=== PATIENT | female | born 1975 | race Caucasian/White ===

== ENCOUNTER → 2019-09-14 13:35 | Outpatient (BNVA) | payer MEDICARE, MEDICAID, SELFPAY | PROVIDERS: Family Provider Family Medicine; Visit Provider Nurse Practitioner Psychiatric/Mental Health | DX: F43.12 Post-traumatic stress disorder, chronic (principal); F41.0 Panic disorder [episodic paroxysmal anxiety]; F31.75 Bipolar disorder, in partial remission, most recent episode depressed; Z79.899 Other long term (current) drug therapy | CPT/HCPCS: 99213 ==

== ENCOUNTER → 2019-12-11 08:26 | Outpatient (BNVA) | payer MEDICARE, MEDICAID, SELFPAY | PROVIDERS: Family Provider Family Medicine; Visit Provider Nurse Practitioner Psychiatric/Mental Health | DX: F31.76 Bipolar disorder, in full remission, most recent episode depressed (principal); F43.12 Post-traumatic stress disorder, chronic; F41.0 Panic disorder [episodic paroxysmal anxiety]; F33.2 Major depressive disorder, recurrent severe without psychotic features; F41.1 Generalized anxiety disorder | CPT/HCPCS: 99212 ==

== ENCOUNTER → 2020-03-07 10:27 | Outpatient (BNVA) | payer MEDICARE, MEDICAID, SELFPAY | PROVIDERS: Family Provider Family Medicine; Visit Provider Nurse Practitioner Psychiatric/Mental Health | DX: F31.76 Bipolar disorder, in full remission, most recent episode depressed (principal); F41.0 Panic disorder [episodic paroxysmal anxiety]; F43.12 Post-traumatic stress disorder, chronic | CPT/HCPCS: 99212 ==

== ENCOUNTER → 2020-05-27 09:04 | Outpatient (BNVA) | payer MEDICARE, MEDICAID, SELFPAY | PROVIDERS: Family Provider Family Medicine; Visit Provider Nurse Practitioner Psychiatric/Mental Health | DX: F31.75 Bipolar disorder, in partial remission, most recent episode depressed (principal) | CPT/HCPCS: 80061; 83036 ==

== ENCOUNTER → 2020-05-30 09:32 | Outpatient (BNVA) | payer MEDICARE, MEDICAID, SELFPAY | PROVIDERS: Family Provider Family Medicine; Visit Provider Nurse Practitioner Psychiatric/Mental Health | DX: F41.0 Panic disorder [episodic paroxysmal anxiety] (principal); F43.12 Post-traumatic stress disorder, chronic; F31.76 Bipolar disorder, in full remission, most recent episode depressed | CPT/HCPCS: 99212 ==

== ENCOUNTER → 2020-06-24 13:49 | Outpatient (BNVA) | payer MEDICARE, MEDICAID, SELFPAY | PROVIDERS: Family Provider Family Medicine; Visit Provider Family Medicine | DX: I10 Essential (primary) hypertension (principal); E03.9 Hypothyroidism, unspecified; J44.9 Chronic obstructive pulmonary disease, unspecified | CPT/HCPCS: 80053; 81015; 82043; 84443; 85025 ==

== ENCOUNTER → 2020-08-15 10:37 | Outpatient (BNVA) | payer MEDICARE, MEDICAID, SELFPAY | PROVIDERS: Family Provider Family Medicine; Visit Provider Nurse Practitioner Psychiatric/Mental Health | DX: F41.0 Panic disorder [episodic paroxysmal anxiety] (principal); F43.12 Post-traumatic stress disorder, chronic; F31.76 Bipolar disorder, in full remission, most recent episode depressed; F12.20 Cannabis dependence, uncomplicated | CPT/HCPCS: 99212 ==

== ENCOUNTER → 2020-11-18 08:15 | Outpatient (BNVA) | payer MEDICARE, MEDICAID, SELFPAY | PROVIDERS: Family Provider Family Medicine; Visit Provider Nurse Practitioner Psychiatric/Mental Health | DX: F41.0 Panic disorder [episodic paroxysmal anxiety] (principal); F43.12 Post-traumatic stress disorder, chronic; F31.76 Bipolar disorder, in full remission, most recent episode depressed; F12.20 Cannabis dependence, uncomplicated | CPT/HCPCS: 99213 ==

== ENCOUNTER → 2020-11-26 13:47 | Outpatient (BNVA) | payer MEDICARE, MEDICAID, SELFPAY | PROVIDERS: Family Provider Family Medicine; PCP Family Medicine; Visit Provider Specialist | DX: G43.711 Chronic migraine without aura, intractable, with status migrainosus (principal); I65.29 Occlusion and stenosis of unspecified carotid artery; F17.210 Nicotine dependence, cigarettes, uncomplicated | CPT/HCPCS: 99215 ==

== ENCOUNTER 2020-12-19 13:33 | Outpatient (CLI) | payer MEDICARE, MEDICAID, SELFPAY ==
--- NOTE | 2020-12-19 14:00 | CT_ITS ---
WS: [id number] CTA scan of the carotid arteries. Additional two-dimensional coronal and sagittal reconstruction was performed. MIP images were also performed. 12/19/2020 Clinical Data: I65.29 - Occlusion and stenosis of unspecified carotid ar... Comparison: CTA of the carotid arteries, 01/03/2019. DLP: 902.[address] scans at [facility] use at least one of these dose optimization techniques: automat ed exposure control; mA and/or kV adjustment per patient size (includes targeted exams where dose is matched to clinical indication); or iterative reconstruction. Findings: Arterial: The origin of the right internal carotid artery shows a 72% stenosis. Basically this is the same as w as seen on the prior study. The right vertebral artery is diminutive. The left common carotid artery bifurcates normally into the left internal and external carotid arteries with no evidence of stenosi s. The left vertebral artery is larger than the right. The carotid arteries and the vertebral arteries enter the cerebral circulation. The cabaz[place] of [place] is normal with no evidence of any aneurysms. NECK: The lung apices are normal. The thyroid gland shows normal enhancement. No lymphadenopathy is noted. The hypopharynx and oropharynx are unremarkable. The larynx is symmetric. The skull base shows no abn ormalities. CT/CT angio neck [id number] Impression: 1. Right internal carotid stenosis of 72%, basically unchanged from before. 2. Normal left carotid bifurcation.
[2020-12-19] MEDS: iohexol 350 mg/mL 100 mL Btl IV (14:07)
== END 2020-12-19 13:34 | disposition home or self-care (01) ==
LOC: RADWPI 13:40
PROVIDERS: PCP Family Medicine; Visit Provider Specialist
DX: I65.29 Occlusion and stenosis of unspecified carotid artery (principal)
CPT/HCPCS: 70498; Q9967

== ENCOUNTER → 2021-01-27 10:03 | Outpatient (BNVA) | payer MEDICARE, MEDICAID, SELFPAY | PROVIDERS: PCP Family Medicine; Visit Provider Specialist | DX: G56.91 Unspecified mononeuropathy of right upper limb (principal); R20.0 Anesthesia of skin; F17.210 Nicotine dependence, cigarettes, uncomplicated | CPT/HCPCS: 95908 ==

== ENCOUNTER → 2021-02-10 07:28 | Outpatient (BNVA) | payer MEDICARE, MEDICAID, SELFPAY | PROVIDERS: PCP Family Medicine; Visit Provider Nurse Practitioner Psychiatric/Mental Health | DX: F41.0 Panic disorder [episodic paroxysmal anxiety] (principal); F43.12 Post-traumatic stress disorder, chronic; F31.76 Bipolar disorder, in full remission, most recent episode depressed; F12.20 Cannabis dependence, uncomplicated | CPT/HCPCS: 99213 ==

== ENCOUNTER → 2021-02-11 14:08 | Outpatient (BNVA) | payer MEDICARE, MEDICAID, SELFPAY | PROVIDERS: PCP Family Medicine; Visit Provider Nurse Practitioner Family | DX: Z20.822 Contact with and (suspected) exposure to COVID-19 (principal) | CPT/HCPCS: 87635 ==

== ENCOUNTER → 2021-04-14 07:40 | Outpatient (BNVA) | payer MEDICARE, MEDICAID, SELFPAY | PROVIDERS: PCP Family Medicine; Visit Provider Nurse Practitioner Psychiatric/Mental Health | DX: F41.0 Panic disorder [episodic paroxysmal anxiety] (principal); F43.12 Post-traumatic stress disorder, chronic; F31.76 Bipolar disorder, in full remission, most recent episode depressed; F12.20 Cannabis dependence, uncomplicated; Z79.899 Other long term (current) drug therapy | CPT/HCPCS: 99214 ==

== ENCOUNTER → 2021-05-02 11:58 | Outpatient (BNVA) | payer MEDICARE, MEDICAID, SELFPAY | PROVIDERS: PCP Family Medicine; Visit Provider Family Medicine | DX: I10 Essential (primary) hypertension (principal); E78.5 Hyperlipidemia, unspecified; E03.9 Hypothyroidism, unspecified; Z23 Encounter for immunization; Z79.899 Other long term (current) drug therapy | CPT/HCPCS: 80053; 80061; 82043; 83036; 84443; 85025 ==

== ENCOUNTER → 2021-06-19 09:36 | Outpatient (BNVA) | payer MEDICARE, MEDICAID, SELFPAY | PROVIDERS: PCP Family Medicine; Visit Provider Family Medicine | DX: R30.0 Dysuria (principal); R31.9 Hematuria, unspecified | CPT/HCPCS: 81000 ==

== ENCOUNTER → 2021-07-07 08:16 | Outpatient (BNVA) | payer MEDICARE, MEDICAID, SELFPAY | PROVIDERS: PCP Family Medicine; Visit Provider Nurse Practitioner Psychiatric/Mental Health | DX: F41.0 Panic disorder [episodic paroxysmal anxiety] (principal); F43.12 Post-traumatic stress disorder, chronic; F31.76 Bipolar disorder, in full remission, most recent episode depressed | CPT/HCPCS: 99213 ==

== ENCOUNTER → 2021-09-30 08:26 | Outpatient (BNVA) | payer MEDICARE, MEDICAID, SELFPAY | PROVIDERS: PCP Family Medicine; Visit Provider Nurse Practitioner Psychiatric/Mental Health | DX: F41.0 Panic disorder [episodic paroxysmal anxiety] (principal); F43.12 Post-traumatic stress disorder, chronic; F31.76 Bipolar disorder, in full remission, most recent episode depressed | CPT/HCPCS: 99214 ==

== ENCOUNTER → 2021-11-03 10:50 | Outpatient (BNVA) | payer MEDICARE, MEDICAID, SELFPAY | PROVIDERS: PCP Family Medicine; Visit Provider Family Medicine | DX: E03.9 Hypothyroidism, unspecified (principal) | CPT/HCPCS: 84443 ==

== ENCOUNTER → 2021-11-27 10:45 | Outpatient (BNVA) | payer MEDICARE, MEDICAID, SELFPAY | PROVIDERS: PCP Family Medicine; Visit Provider Nurse Practitioner Psychiatric/Mental Health | DX: F41.0 Panic disorder [episodic paroxysmal anxiety] (principal); F43.12 Post-traumatic stress disorder, chronic; F31.76 Bipolar disorder, in full remission, most recent episode depressed | CPT/HCPCS: 99214 ==

== ENCOUNTER → 2022-03-04 15:38 | Outpatient (BNVA) | payer MEDICARE, MEDICAID, SELFPAY | PROVIDERS: PCP Family Medicine; Visit Provider Specialist | DX: G43.711 Chronic migraine without aura, intractable, with status migrainosus (principal); I65.29 Occlusion and stenosis of unspecified carotid artery; F17.219 Nicotine dependence, cigarettes, with unspecified nicotine-induced disorders; R06.02 Shortness of breath | CPT/HCPCS: 99214 ==

== ENCOUNTER 2022-06-05 07:39 | Outpatient (CLI) | payer MEDICARE, MEDICAID, SELFPAY ==
--- NOTE | 2022-06-05 07:53 | MR_ITS ---
WS: [id number] MRA CAROTID WITHOUT GADOLINIUM ENHANCEMENT TECHNIQUE: Axial 2-D and 3-D TOF images obtained with axial images and axial, sagittal, and coronal 2 -D reformatted images. CLINICAL INFORMATION: G43.711 - Chronic migraine without aura, intractable, wit... COMPARISON: CTA December 19, 2020 FINDINGS: RIGHT: RIGHT common carotid artery is patent. Stenosis RIGHT proximal ICA measuring approximately 70% . This appears unchanged from the prior CTA. RIGHT ICA is patent to the skull base. LEFT: LEFT common carotid artery is patent. No significant LEFT ICA stenosis. LEFT ICA is patent to t he skull base. LEFT dominant vertebral artery. Diminutive RIGHT vertebral artery which ends in PICA. MR/MR angio neck wo con [id number] IMPRESSION: 1. Stenosis RIGHT proximal ICA measuring approximately 70%. This appears uncha nged from the prior CTA. 2. No significant LEFT ICA stenosis. 3. LEFT dominant vertebral artery. Diminutive RIGHT vertebral artery which end s in PICA.
--- NOTE | 2022-06-05 08:00 | MR_ITS ---
WS: [id number] MRA HEAD TECHNIQUE: Axial 3-D TOF images obtained with axial images and axial, sagittal, and coronal 2-D refor matted images. CLINICAL INFORMATION: G43.711 - Chronic migraine without aura, intractable, wit... COMPARISON: MRA FINDINGS: Dominant distal LEFT vertebral artery. Basilar artery is patent. Normal vascularity to the [place] territ ory bilaterally. Both ICAs are patent at the skull base. Normal vascularity to the ANDREA and MCA territories bilaterally. No evidence of flow-limiting stenosis or aneurysm. Hypoplastic RIGHT A1 segment. MR/MR angio head wo con [id number] IMPRESSION: 1. Normal intracranial MRA. 2. No evidence of flow-limiting stenosis or aneurysm. 3. Dominant distal LEFT vertebral artery. 4. Hypoplastic/absent RIGHT A1 segment.
== END 2022-06-05 07:40 | disposition home or self-care (01) ==
LOC: RAD 07:39
PROVIDERS: PCP Family Medicine; Visit Provider Specialist
DX: G43.711 Chronic migraine without aura, intractable, with status migrainosus (principal); I65.21 Occlusion and stenosis of right carotid artery
CPT/HCPCS: 70544; 70547

== ENCOUNTER → 2022-08-24 10:05 | Outpatient (BNVA) | payer MEDICARE, MEDICAID, OTHER, SELFPAY | PROVIDERS: PCP Family Medicine; Visit Provider Nurse Practitioner Psychiatric/Mental Health | DX: F31.76 Bipolar disorder, in full remission, most recent episode depressed (principal); F41.0 Panic disorder [episodic paroxysmal anxiety]; F43.12 Post-traumatic stress disorder, chronic; Z79.899 Other long term (current) drug therapy | CPT/HCPCS: 80053; 80061; 83036 ==

== ENCOUNTER → 2022-09-07 11:57 | Outpatient (BNVA) | payer MEDICARE, MEDICAID, SELFPAY | PROVIDERS: PCP Family Medicine; Visit Provider Family Medicine | DX: E03.9 Hypothyroidism, unspecified (principal); E87.6 Hypokalemia; F17.219 Nicotine dependence, cigarettes, with unspecified nicotine-induced disorders; I10 Essential (primary) hypertension | CPT/HCPCS: 80048; 83735; 84443 ==

== ENCOUNTER → 2022-09-24 09:34 | Outpatient (BNVA) | payer MEDICARE, MEDICAID, SELFPAY | PROVIDERS: PCP Family Medicine; Visit Provider Specialist | DX: G43.711 Chronic migraine without aura, intractable, with status migrainosus (principal); I65.29 Occlusion and stenosis of unspecified carotid artery; F17.219 Nicotine dependence, cigarettes, with unspecified nicotine-induced disorders; J43.1 Panlobular emphysema | CPT/HCPCS: 99213 ==

== ENCOUNTER 2023-02-01 08:24 | Emergency (ER) | payer MEDICARE, MEDICAID, SELFPAY ==
--- NOTE | 2023-02-01 08:25 | ED_ITS ---
HPI - Skin/Abscess/Foreign Bdy General: Chief complaint: Skin/Abscess/Foreign Body Stated complaint: Boil/abscess on lower stomach Time Seen by Provider: 02/01/23 08:25 Source: patient Mode of arrival: ambulatory Limitations: no limitations History of Present Illness: Patient is a 48-year-old female presents to ED today for complaints of an abscess to her lower abdomen. She states she has noticed it over the past 2 months or so and sometimes can get it to drain at home by popping it but feels like it always comes back. She states now it is larger than its ever been thus prompting her ED visit. She has not been running fevers. She does have a history of recurrent abscesses. No known history of MRSA. MD complaint: abscess/boil Onset (ago): month(s) Tetanus up to date: yes Severity: moderate Pain Consistency: constant Relieving factors: none Exacerbating factors: none Context: none Associated symptoms: Reports no associated symptoms; Deny fever(s), nausea or vomiting Treatments prior to arrival: attempted to drain pus at home Review of Systems Const: Denies: fever(s) GI: Denies: abdominal pain, nausea or vomiting Musc: Denies: neck pain, back pain, extremity pain or joint pain Skin/Breast: Reports: other (abscess) Neuro: Denies: headache(s) or dizziness PFSH ED PFSH: Medical History Bipolar 1 disorder, depressed, full remission Bipolar 1 disorder, depressed, partial remission Carotid artery stenosis, unilateral On right - about 75 % stenosis. Chronic post-traumatic stress disorder (PTSD) COPD (chronic obstructive pulmonary disease) Essential hypertension GERD (gastroesophageal reflux disease) Headache, migraine Hyperlipidemia Hypothyroid Panic disorder without agoraphobia Psychiatric care Surgical History H/O section History of appendectomy History of partial hysterectomy Social History Smoking and tobacco status: current every day smoker cigarettes Packs smoked per day: 1 Years cigarettes smoked: 34 Alcohol intake: never Substance/Drug Use: current Substance/Drug use frequency: daily Physical Exam Const: COMMON NORMALS: no acute distress, patient oriented x3, no limitations, alert and well nourished Resp: COMMON NORMALS: normal respiratory effort and clear to auscultation bila terally AUSCULTATION: clear to auscultation bilaterally Cardio: COMMON NORMALS: regular rate and regular rhythm RATE: regular rate RHYTHM: regular rhythm GI: COMMON NORMALS: Soft to palpation AUSCULTATION: Yes normoactive bowel sounds PALPATION: Yes Soft to palpation and No Tenderness to palpation present (GI) OTHER: see diagram below : GENITAL IMAGES (FEMALE): 1. abscess to L superior mons pubis region with obvious fluctuance and some mild surrounding erythema/edema Neuro: COMMON NORMALS: patient oriented x3, moves all extremities, no focal motor deficits and no sensory deficits noted SENSORIUM/ORIENTATION: Yes alert Skin: NARRATIVE SKIN EXAM: abscess-see above Procedures Abscess I/D Site: abdomen Side (if applicable): left Local Anesthetic: lidocaine 2% Amount of anesthesia used (mL): 4.0 Technique: incised with #11 blade Amount of fluid expressed (mL): 4.0 Irrigation: Yes Packing used?: plain Course Vital Signs: Vital signs: Vital Signs Temperature 97.8 F 02/01/23 08:35 Pulse Rate 88 02/01/23 08:38 Blood Pressure 199/134 02/01/23 08:35 Pulse Oximetry 99 02/01/23 08:38 MDM - Skin/Abscess/Foreign Bdy Medicial Decision Making Abscess was incised and drained and packed. Cultures obtained. Patient will be placed on Bactrim. Recommend follow-up with her primary care in 2 to 3 days for reevaluation. Return ED precautions given. Noted to be very hypertensive. States she does take blood pressure medications and blood pressure normally is not that high at home. She is asymptomatic. Recommend blood pressure log and follow-up with primary care if it continues to run high. Discharge Plan Discharge Patient Disposition: Home Clinical Impression: Abscess of abdominal wall Condition: Stable Prescriptions: New Bactrim DS 800-160 mg tablet 1 tab PO BID 7 Days Qty: 14 0RF No Action aspirin [Adult Low Dose Aspirin] 81 mg tablet,delayed release (DR/EC) 81 mg PO DAILY topiramate 50 mg tablet See Rx Instructions .ROUTE .COMPLEX Qty: 180 3RF Dose Instruction: TAKE 1 TABLET BY MOUTH TWICE A DAY Rx Instructions: TAKE 1 TABLET BY MOUTH TWICE A DAY quetiapine 300 mg tablet 300 mg PO .q hs Qty: 30 2RF Rx Instructions: Take one tablet daily at bedtime buspirone 10 mg tablet 10 mg PO BID Qty: 60 2RF Rx Instructions: Take one tablet morning and evening lamotrigine [Lamictal] 200 mg tablet 200 mg PO DAILY Qty: 30 2RF Rx Instructions: take one tablet by mouth once daily atorvastatin 40 mg tablet See Rx Instructions .ROUTE .COMPLEX Qty: 90 1RF Dose Instruction: TAKE 1 TABLET BY MOUTH EVERYDAY AT BEDTIME Rx Instructions: TAKE 1 TABLET BY MOUTH EVERYDAY AT BEDTIME albuterol sulfate 90 mcg/actuation HFA aerosol inhaler See Rx Instructions .ROUTE .COMPLEX Qty: 8.5 1RF Dose Instruction: INHALE 1 PUFF BY MOUTH 4 TIMES A DAY Rx Instructions: INHALE 1 PUFF BY MOUTH 4 TIMES A DAY budesonide-formoterol [Symbicort] 160-4.5 mcg/actuation HFA aerosol inhaler See Rx Instructions .ROUTE .COMPLEX Qty: 10.2 5RF Dose Instruction: INHALE 2 PUFFS BY MOUTH TWICE A DAY Rx Instructions: INHALE 2 PUFFS BY MOUTH TWICE A DAY levothyroxine 25 mcg capsule 25 mcg PO QAM 90 Days Qty: 90 1RF varenicline [Chantix Starting Month Box] 0.5 mg (11)- 1 mg (42) tablets,dose pack See Rx Instructions PO PER PKG DIR Qty: 53 0RF Rx Instructions: PO PER PKG DIR omeprazole 20 mg capsule,delayed release(DR/EC) See Rx Instructions .ROUTE .COMPLEX Qty: 90 0RF Dose Instruction: TAKE 1 CAPSULE BY MOUTH EVERY DAY Rx Instructions: TAKE 1 CAPSULE BY MOUTH EVERY DAY lisinopril 5 mg tablet See Rx Instructions .ROUTE .COMPLEX Qty: 90 1RF Dose Instruction: TAKE 1 TABLET BY MOUTH EVERY DAY Rx Instructions: TAKE 1 TABLET BY MOUTH EVERY DAY Discharge Orders: Discharge ED (Routine); Ordered 02/01/23 Ordered By: Naeyli Plata Referrals: Yesenia Dudley DO [Primary Care Provider] - Patient Instructions: Abscess (ED), Abscess Incision and Drainage (DC) Activity Restrictions/Additional Instructions: Please monitor your abscess for worsening symptoms such as worsening redness, swelling, increased drainage, red streaking, or fevers. If you have been on antibiotics for over 48 hours and continue to worsen you need to immediately return to the emergency department for re-evaluation. If your abscess was incised and drained and packing was placed, you need to follow up with your primary care provider in 2-3 days for re-packing. Coding Level of Care Code ED Patient Relations Specialist for Marcela Russell
[2023-02-01 08:35] VITALS: BP 199/134; TEMP 36.6; BMI 27.3
[2023-02-01 08:38] VITALS: PULSE 88; O2SAT 99
[2023-02-01] MEDS: lidocaine 2% INJ 20 mL INJECTION (09:15)
[2023-02-01 09:29] VITALS: BP 153/84; PULSE 97; RESP 16
== END 2023-02-01 09:29 | disposition home or self-care (01) ==
PROVIDERS: Emergency Provider Physician Assistant; PCP Family Medicine
DX: L02.211 Cutaneous abscess of abdominal wall (principal); Z79.899 Other long term (current) drug therapy
CPT/HCPCS: 10061; 87070; 87075; 87205; 99283

== ENCOUNTER → 2023-03-19 07:50 | Outpatient (BNVA) | payer MEDICARE, SELFPAY | PROVIDERS: PCP Family Medicine; Visit Provider Family Medicine | DX: I10 Essential (primary) hypertension (principal); E03.9 Hypothyroidism, unspecified | CPT/HCPCS: 80053; 84443; 85025 ==

== ENCOUNTER 2023-06-27 14:44 | Emergency (ER) | payer MEDICARE, MEDICAID, SELFPAY ==
[2023-06-27 14:51] VITALS: BP 144/82; PULSE 77; TEMP 36.8; O2SAT 98; BMI 32.2
--- NOTE | 2023-06-27 17:02 | CTR_ITS ---
PROCEDURE INFORMATION: Exam: CT Abdomen And Pelvis With Contrast Exam date and time: 06/27/2023 5:45 PM Age: 48 years old Clinical indication: Constipation; Prior surgery; Surgery date: 6+ months; Surgery type: Partial hyster, appy, c section TECHNIQUE: Imaging protocol: Computed tomography of the abdomen and pelvis with contrast. Radiation optimization: All CT scans at this facility use at least one of these dose optimization techniques: automated exposure control; mA and/or kV adjustment per patient size (includes targeted exams where dose is matched to clinical indication); or iterative reconstruction. Contrast material: OMNI 350; Contrast volume: 100 ml; Contrast route: INTRAVENOUS (IV); REPORTING DATA: Count of CT and Cardiac NM exams in prior 12 months: This patient has received 0 known CTs and 0 known cardiac nuclear medicine studies in the 12 months prior to the current study. COMPARISON: CT lumbar spine w con [id number] 05/21/2017 9:37 AM RADIATION DOSE METRICS: Total DLP (mGy-cm): 753.43 FINDINGS: Liver: Normal. No mass. Gallbladder and bile ducts: Normal. No calcified stones. No ductal dilation. Pancreas: Normal. No ductal dilation. Spleen: Normal. No splenomegaly. Adrenal glands: Normal. No mass. Kidneys and ureters: Normal. No hydronephrosis. Stomach and bowel: Moderate stool burden throughout the colon. No bowel obstruction. Appendix: The appendix is not visualized but there are no secondary signs of acute appendicitis. Intraperitoneal space: Unremarkable. No free air. No significant fluid collection. Vasculature: Unremarkable. No abdominal aortic aneurysm. Lymph nodes: Unremarkable. No enlarged lymph nodes. Urinary bladder: Unremarkable as visualized. Reproductive: Unremarkable as visualized. Bones/joints: Severe degenerative disc disease at L2-L3 and [id number] degenerative disc disease at L3-L4. Soft tissues: Unremarkable. CT/CT abdomen pelvis w con* [id number] IMPRESSION: Moderate stool burden throughout the colon. No bowel obstruction.
--- NOTE | 2023-06-27 17:10 | ED_ITS ---
HPI - Abdominal Pain General: Chief Complaint: Abdominal Pain Stated Complaint: constipated,weakness Time Seen by Provider: 06/27/23 16:33 Source: patient Mode of arrival: ambulatory Limitations: no limitations History of Present Illness: This 48-year-old female presents to the ER with constipation. She notes that since 06/14/2023 (15 days ago), she has not had a bowel movement. However, she continues to eat with no vomiting. Her abdomen is bloated and she has mild discomfort in the left upper quadrant. Patient denies fever, chest pain, shortness of breath, dysuria or any other pertinent symptoms. She has tried all sorts of laxatives and enemas without success. She has never had a fecal i mpaction before and denies any change in medications or routine that could have contributed to this. Associated Symptoms: Reports constipation; Denies chills and dysuria Review of Systems Const: Denies: chills, body aches or change in appetite Eyes: Denies: change in vision or eye discharge ENMT: Denies: throat pain, dental pain or nasal discharge Card: Denies: chest pain or lightheadedness GI: Reports: abdominal pain (discomfort) and constipation : Denies: dysuria Musc: Denies: neck pain or back pain Neuro: Denies: headache(s) or weakness in extremities Psych: Denies: depression Crow/Lymph: Denies: easy bruising All/Imm: Denies: urticaria, tongue swelling or facial swelling PFS ED PFSH: Medical History Bipolar 1 disorder, depressed, full remission Bipolar 1 disorder, depressed, partial remission Carotid artery stenosis, unilateral On right - about 75 % stenosis. Chronic post-traumatic stress disorder (PTSD) COPD (chronic obstructive pulmonary disease) Essential hypertension GERD (gastroesophageal reflux disease) Headache, migraine Hyperlipidemia Hypothyroid Panic disorder without agoraphobia Psychiatric care Surgical History H/O section History of appendectomy History of partial hysterectomy Social History Smoking and tobacco/nicotine status: current every day tobacco/nicotine user cigarettes Packs smoked per day: 1 Years cigarettes smoked: 34 Alcohol intake: never Substance/Drug Use: current Substance/Drug use frequency: daily Physical Exam Const: COMMON NORMALS: no acute distress, patient oriented x3, no limitations and alert HENMT: COMMON NORMALS: normocephalic HEAD & SCALP: normocephalic Eye: COMMON NORMALS: EOMs intact bilaterally Neck/C-Spine: COMMON NORMALS: full ROM and supple Chest: COMMONS NORMALS: normal inspection of the chest Resp: COMMON NORMALS: normal respiratory effort, No retractions, No use of accessory muscles and clear to auscultation bilaterally AUSCULTATION: clear to auscultation bilaterally Cardio: COMMON NORMALS: regular rate, regular rhythm and No murmurs present (Cardio) RATE: regular rate RHYTHM: regular rhythm GI: OTHER: Abdomen is large, soft, mildly tender in the left upper quadrant, no rigidity, bowel sounds are sluggish. Rectal exam reveals an empty rectum. : COMMON NORMALS: No no CVA tenderness BLADDER/KIDNEY EXAM: No no CVA tenderness Back/Pelvis: COMMON NORMALS: no thoracic nor lumbar tenderness; negative for no CVA tenderness Extremity: GENERAL: Yes normal exam except as noted Neuro: COMMON NORMALS: patient oriented x3 and no focal motor deficits SENSORIUM/ORIENTATION: Yes alert Psych: COMMON NORMALS: mental status grossly normal and cooperative Course Vital Signs: Vital signs: Vital Signs Temperature 98.2 F 06/27/23 14:51 Pulse Rate 68 06/27/23 19:15 Respiratory Rate 20 H 06/27/23 19:15 Blood Pressure 127/87 06/27/23 19:15 Pulse Oximetry 97 06/27/23 19:15 Oxygen Delivery Me thod Room Air 06/27/23 14:51 MDM - Abdominal Pain Medical Decision Making Medical decision making: History as above. Rectal exam confirms that patient has no fecal impaction. CT abdomen/pelvis was obtained to rule out acute bowel obstruction. There is no indication of bowel obstruction but it does reveal a large burden of stool in the large bowel. Since patient has tried different laxatives at home, we will give her GoLytely. Instructions on how to use it or provided. She was advised to increase fiber in her diet and to maintain adequate fluid intake. Reasons to return were discussed. Patient verbalized understanding and agrees with the plan. Lab Data 06/27/23 17:33 06/27/23 17:33 Labs/Radiology: Radiology Impressions Abdomen/Pelvis CT 06/27/23 17:02 IMPRESSION: Moderate stool burden throughout the colon. No bowel obstruction. Laboratory Results WBC 10.25 10^3/uL (3.29-11.43) 06/27/23 17: RBC 4.16 10^6/uL (3.85-5.65) 06/27/23 17: Hgb 13.20 g/dL (11.27-16.99) 06/27/23 17: Hct 39.3 % (36-47) 06/27/23 17: MCV 94.5 fl (85-98) 06/27/23 17: MCH 31.7 pg (27-33) 06/27/23 17: MCHC 33.6 g/dL (30-55) 06/27/23 17: RDW 12.3 % (12.1-15.1) 06/27/23 17: Plt Count 240 10^3/cmm (157-399) 06/27/23 17: MPV 10.2 fL (7.4-10.4) 06/27/23 17: Neut % (Auto) 53.3 % 06/27/23 17: Lymph % (Auto) 36.5 % 06/27/23 17: [place] % (Auto) 7.1 % 06/27/23 17: Eos % (Auto) 2.0 % 06/27/23 17: Baso % (Auto) 0.8 % 06/27/23: Neut # (Auto) 5.46 10^3/uL (1.8-7.7) 06/27/23 17: Lymph # (Auto) 3.7 10^3/uL (0.8-4.8) 06/27/23 17: [place] # (Auto) 0.7 10^3/uL (0.2-0.9) 06/27/23 17: Eos # (Auto) 0.2 10^3/uL (0.0-0.8) 06/27/23 17: Baso # (Auto) 0.1 10^3/uL (0.0-0.1) 06/27/23 17: Nucleated RBC % (auto) 0 % 06/27/23 17:33 Nucleated RBCs # 0.0 /100WBC 06/27/23 17:33 Sodium 140 mmol/L (136-145) 06/27/23 17:33 Potassium 3.5 mmol/L (3.5-5.1) 06/27/23 17:33 Chloride 105 mmol/L (98-107) 06/27/23 17:33 Carbon Dioxide 23 mmol/L (22-29) 06/27/23 17:33 Anion Gap 15.5 (5-19) 06/27/23 17:33 BUN 11 mg/dL (6-20) 06/27/23 17:33 Creatinine 0.7 mg/dL (0.5-0.9) 06/27/23 17:33 GFR Calculation 89.3 mL/min (90-130) L 06/27/23 17:33 Glucose 101 mg/dL (65-115) 06/27/23 17:33 Calculated Osmolality 290 mOsm/kg (285-295) 06/27/23 17:33 Calcium 9.0 mg/dL (8.5-10.5) 06/27/23 17:33 Total Bilirubin 0.2 mg/dL (0.15-1.2) 06/27/23 17:33 AST 15 U/L (0-32) 06/27/23 17:33 ALT 12 U/L (0-33) 06/27/23 17:33 Alkaline Phosphatase 75 U/L (35-105) 06/27/23 17:33 Total Protein 7.1 g/dL (6.6-8.7) 06/27/23 17:33 Albumin 4.2 g/dL (3.5-5.2) 06/27/23 17:33 Globulin 2.9 g/dL (1.3-4.6) 06/27/23 17:33 All radiology interpretation(s) finalized by discharge Discharge Plan Discharge Patient Disposition: Home Clinical Impression: Constipation Condition: Stable Prescriptions: New Golytely 236-22.74-6.74 -5.86 gram recon soln 240 ml PO Q10M Qty: 4000 0RF Rx Instructions: Until have the first bowel movement No Action aspirin [Adult Low Dose Aspirin] 81 mg tablet,delayed release (DR/EC) 81 mg PO DAILY buspirone 10 mg tablet 10 mg PO BID Qty: 60 1RF lamotrigine [Lamictal] 200 mg tablet 200 mg PO DAILY Qty: 30 1RF levothyroxine 50 mcg tablet 50 mcg PO QAM atorvastatin 40 mg tablet 40 mg PO BEDTIME quetiapine 300 mg tablet 300 mg PO BEDTIME omeprazole 20 mg capsule,delayed release(DR/EC) 20 mg PO DAILY lisinopril 5 mg tablet 5 mg PO DAILY albuterol sulfate 90 mcg/actuation HFA aerosol inhaler 1 inh inhalation QID PRN (Reason: Shortness Of Breath) topiramate 50 mg tablet 50 mg PO BID Symbicort 160-4.5 mcg/actuation HFA aerosol inhaler 2 inh inhalation BID Discharge Orders: Discharge ED (Routine); Ordered 06/27/23 Ordered By: Felicita Guevara Referrals: Yesenia Dudley DO [Primary Care Provider] - Discharge Diet: As Directed Discharge Activity: Resume usual activity Patient Instructions: Opioid Safety, Pain Management Activity Restrictions/Additional Instructions: Take GoLytely as prescribed. Use it until you have the first bowel movement. Th en stop. Afterwards, start taking MiraLAX daily to maintain soft and daily bowel movements. Increase fiber in your diet including fruits and vegetables. Maintain adequate fluid intake. Follow-up with your primary care physician within a week for reevaluation. Return with new or worsening symptoms. Coding Level of Care Code ED Building Specialist for Marcela Russell
[2023-06-27] MEDS: sodium chloride 0.9% 1,000 ML 999 ML IV (17:25)
[2023-06-27 17:45] LABS: Basophils # 0.1 10^3/uL (0.0-0.1); Basophils % 0.8 %; Eosinophils # 0.2 10^3/uL (0.0-0.8); Hematocrit 39.3 % (36-47); Lymphocytes # 3.7 10^3/uL (0.8-4.8); Lymphocytes % 36.5 %; Mean Corpuscular HGB Conc 33.6 g/dL (30-55); Mean Corpuscular Hemoglobin 31.7 pg (27-33); Mean Corpuscular Volume 94.5 fl (85-98); Mean Platelet Volume 10.2 fL (7.4-10.4); Monocytes # 0.7 10^3/uL (0.2-0.9); Monocytes % 7.1 %; Neutrophils # 5.46 10^3/uL (1.8-7.7); Neutrophils % 53.3 %; Nucleated Red Blood Cells % 0 %; Platelet Count 240 10^3/cmm (157-399); Red Blood Count 4.16 10^6/uL (3.85-5.65); Red Cell Distribution Width 12.3 % (12.1-15.1); White Blood Count 10.25 10^3/uL (3.29-11.43)
[2023-06-27 18:04] LABS: Alanine Aminotransferase 12 U/L (0-33); Albumin Level 4.2 g/dL (3.5-5.2); Alkaline Phosphatase 75 U/L (35-105); Anion Gap 15.5 (5-19); Aspartate Amino Transferase 15 U/L (0-32); Blood Urea Nitrogen 11 mg/dL (6-20); Carbon Dioxide 23 mmol/L (22-29); Chloride 105 mmol/L (98-107); Globulin 2.9 g/dL (1.3-4.6); Glomerular Filtration Rate 89.3 mL/min (90-130); Glucose 101 mg/dL (65-115); Osmolality Calculated 290 mOsm/kg (285-295); Potassium 3.5 mmol/L (3.5-5.1); Sodium 140 mmol/L (136-145); Total Bilirubin 0.2 mg/dL (0.15-1.2); Total Protein 7.1 g/dL (6.6-8.7)
[2023-06-27 19:15] VITALS: BP 127/87; PULSE 68; RESP 20; O2SAT 97
== END 2023-06-27 19:16 | disposition home or self-care (01) ==
PROVIDERS: Emergency Provider Family Medicine; PCP Family Medicine
DX: K59.00 Constipation, unspecified (principal); Z79.82 Long term (current) use of aspirin; J44.9 Chronic obstructive pulmonary disease, unspecified; I10 Essential (primary) hypertension; E78.5 Hyperlipidemia, unspecified; F17.210 Nicotine dependence, cigarettes, uncomplicated
CPT/HCPCS: 36415; 74177; 80053; 85025; 96360; 99285; J7030; Q9967

== ENCOUNTER → 2023-12-15 08:20 | Outpatient (BNVA) | payer MEDICARE, OTHER, SELFPAY | PROVIDERS: PCP Family Medicine; Visit Provider Nurse Practitioner Psychiatric/Mental Health | DX: Z79.899 Other long term (current) drug therapy (principal) | CPT/HCPCS: 80053; 80061; 83036 ==

== ENCOUNTER → 2024-01-14 10:26 | Outpatient (BNVA) | payer MEDICARE, SELFPAY | PROVIDERS: PCP Family Medicine; Visit Provider Family Medicine | DX: E03.9 Hypothyroidism, unspecified (principal); E78.2 Mixed hyperlipidemia; I10 Essential (primary) hypertension; K21.9 Gastro-esophageal reflux disease without esophagitis; Z12.31 Encounter for screening mammogram for malignant neoplasm of breast; Z12.11 Encounter for screening for malignant neoplasm of colon | CPT/HCPCS: 84443 ==

== ENCOUNTER 2024-02-02 08:08 | Outpatient (CLI) | payer MEDICARE, MEDICAID, SELFPAY ==
--- NOTE | 2024-02-02 08:30 | MM_ITS ---
WS: [id number] BILATERAL 3D TOMOSYNTHESIS DIGITAL SCREENING MAMMOGRAPHY WITH CAD CLINICAL INFORMATION: screening HISTORY: Screening mammogram. No current complaints. COMPARISON: 2019 TECHNIQUE: Bilateral CC and MLO views. FINDINGS: The breasts are composed of heterogeneous fibroglandular density tissue, which can limit the detectio n of small underlying mass lesions. No suspicious mass, asymmetry, calcifications, or architectural d istortion. No evidence of malignancy. Lucent centered calcification RIGHT breast. Tiny calcified nodu le RIGHT breast likely involuting fibroadenoma MM/[place] [id number] IMPRESSION: BI-RADS: 2-Benign FOLLOW UP: 1 Year Follow-up Recommend return to annual screening mammography.
== END 2024-02-02 08:09 | disposition home or self-care (01) ==
LOC: RAD 08:08
PROVIDERS: PCP Family Medicine; Visit Provider Family Medicine
DX: Z12.31 Encounter for screening mammogram for malignant neoplasm of breast (principal); R92.333 Mammographic heterogeneous density, bilateral breasts; R92.323 Mammographic fibroglandular density, bilateral breasts; R92.1 Mammographic calcification found on diagnostic imaging of breast
CPT/HCPCS: 77063; 77067

== ENCOUNTER → 2024-03-28 09:09 | Outpatient (BNVA) | payer MEDICARE, SELFPAY | PROVIDERS: PCP Family Medicine; Visit Provider Specialist | DX: E03.9 Hypothyroidism, unspecified (principal); I65.29 Occlusion and stenosis of unspecified carotid artery; R29.90 Unspecified symptoms and signs involving the nervous system; G43.711 Chronic migraine without aura, intractable, with status migrainosus; F17.219 Nicotine dependence, cigarettes, with unspecified nicotine-induced disorders; J43.1 Panlobular emphysema; I95.1 Orthostatic hypotension; Z71.6 Tobacco abuse counseling | CPT/HCPCS: 36415; 84439; 84443; 99214; 99215 ==

== ENCOUNTER 2024-04-10 13:44 | Outpatient (CLI) | payer MEDICARE, MEDICAID, SELFPAY ==
--- NOTE | 2024-04-10 14:00 | CT_ITS ---
WS: [id number] CTA NECK TECHNIQUE: Contrast enhanced CTA of the neck with coronal and sagittal reformatted images and maximum intensity projection (MIP) images. NASCET criteria utilized. CLINICAL INFORMATION: I65.29 - Occlusion and stenosis of unspecified carotid ar... COMPARISON: CTA 2020 and MRA 06/05/2022 DLP: 309.[address] scans at [facility] use at least one of these dose optimization techniques: automated e xposure control; mA and/or kV adjustment per patient size (includes targeted exams where dose is matc hed to clinical indication); or iterative reconstruction. FINDINGS: RIGHT: RIGHT common carotid artery is patent. Stenosis RIGHT proximal ICA measuring approximately 70% unchanged from prior studies. RIGHT ICA remains patent to the skull base. LEFT: LEFT common carotid artery is patent. No significant LEFT ICA stenosis. LEFT ICA is patent to t he skull base. Absent RIGHT A1 segment. Normal vascularity to the ANDREA and MCA territories bilaterally . 5 mm noncalcified nodule RIGHT upper lobe. This appears stable since 2019. Tiny hypoplastic RIGHT rekha tebral artery. Dominant LEFT vertebral artery. Heterogeneous thyroid CT/CT angio neck [id number] IMPRESSION: 1. Stable approximately 70% stenosis RIGHT proximal ICA. 2. No significant LEFT ICA stenosis. 3. LEFT dominant vertebral artery. Tiny hypoplastic RIGHT vertebral artery.
[2024-04-10] MEDS: iohexol 350 mg/mL 500 mL Btl (per mL) IV (14:27)
== END 2024-04-10 13:45 | disposition home or self-care (01) ==
LOC: RAD 13:46
PROVIDERS: PCP Family Medicine; Visit Provider Specialist
DX: I65.21 Occlusion and stenosis of right carotid artery (principal)
CPT/HCPCS: 70498

== ENCOUNTER 2024-08-08 13:42 | Emergency (ER) | payer MEDICARE, MEDICAID, SELFPAY ==
[2024-08-08 14:02] VITALS: BP 182/91; PULSE 84; RESP 17; TEMP 36.9; O2SAT 99
--- NOTE | 2024-08-08 15:21 | ED_ITS ---
HPI - COVID 2 General: Chief Complaint: COVID symptoms Stated Complaint: covid symptoms Time Seen by Provider: 08/08/24 15:15 Source: patient Mode of arrival: ambulatory Limitations: no limitations Triage information: Has fever, cough or shortness of breath . History of Present Illness: Patient is a 49-year-old female who presents to ED today stating I think I have COVID . States she has symptoms of COVID and tested positive for COVID via home antigen testing approximately 3 to 4 days ago. Patient concerned because I am not getting better . She has reportedly had symptoms for over a week. Symptoms consisting of nasal congestion, cough (although this is improving), lack of appetite, generalized weakness, bilateral ear pain, loss of taste and smell, and body aches. She is not experiencing fevers. Patient is an everyday smoker?cigarettes and vaping. She is not having any vomiting or diarrhea. She is requesting IV fluids as she feels like this will make her feel better. MD complaint: known COVID positive and has COVID symptoms Prior covid testing: other (positive home antigen testing) COVID 19 common symptoms: positive chills, non-productive cough, fatigue, body aches and nasal congestion; negative fever(s), dyspnea, headache(s), throat pain, vomiting or diarrhea COVID 19 other sytmptoms: negative chest pain or dizziness Onset (ago): day(s) Severity: mild Treatment prior to arrival: none COVID Results: 2 SARS-CoV-2 RNA (RT-PCR) Not detected (NOT DETECTED) 02/11/21 1 4:08 Related Data Home Medications Medication Instructions Recorded Confirmed aspirin 81 mg tablet,delayed 81 mg PO DAILY 09/08/19 08/08/24 release (Adult Low Dose Aspirin) atorvastatin 40 mg tablet 40 mg PO QPM 08/08/24 08/08/24 levothyroxine 25 mcg tablet 25 mcg PO QAM 08/08/24 08/08/24 lisinopril 5 mg tablet 5 mg PO DAILY 08/08/24 08/08/24 Previous Rx's Medication Instructions Recorded topiramate 50 mg tablet 50 mg PO BID #180 tabs 03/28/24 buspirone 10 mg tablet 10 mg PO BID #60 tabs 07/24/24 lamotrigine 200 mg tablet 200 mg PO .q hs #30 tabs 07/24/24 (Lamictal) quetiapine 300 mg tablet 300 mg PO BEDTIME #30 tabs 07/24/24 dexamethasone 6 mg tablet 6 mg PO DAILY #6 tabs 08/08/24 Allergies Allergy/AdvReac Type Severity Reaction Status Date / Time sulfamethoxazole Allergy Intermediate ALGY-Chills Verified 08/08/24 14:07 [From Bactrim] trimethoprim [From Bactrim] Allergy Intermediate ALGY-Chills Verified 08/08/24 14:07 codeine Allergy Unknown Verified 08/08/24 14:07 Review of Systems 2 Const: Reports: chills, body aches, change in appetite and fatigue; Denies: fever(s) ENMT: Reports: ear or mastoid pain, change in hearing, nasal discharge, nasal congestion and other (loss of taste/smell); Denies: throat pain, odynophagia, ear discharge, tinnitus or disequilibrium Card: Denies: chest pain Resp: Reports: non-productive cough; Denies: dyspnea, wheezing or hemoptysis GI: Denies: abdominal pain, vomiting or diarrhea : Denies: flank pain or dysuria Musc: Denies: neck pain, back pain, extremity pain, extremity swelling, joint pain or joint swelling Skin/Breast: Denies: rash Neuro: Denies: headache(s), numbness in extremities, weakness in extremities, sensory changes or dizziness PFSH ED 2 PFSH: Medical History GERD (gastroesophageal reflux disease) Psychiatric care Headache, migraine Carotid artery stenosis, unilateral On right - about 75 % stenosis. Hyperlipidemia Essential hypertension Hypothyroid COPD (chronic obstructive pulmonary disease) Bipolar 1 disorder, depressed, full remission Bipolar 1 disorder, depressed, partial remission Panic disorder without agoraphobia Chronic post-traumatic stress disorder (PTSD) Surgical History History of partial hysterectomy H/O section History of appendectomy Social History Smoking and tobacco/nicotine status: current every day tobacco/nicotine user cigarettes Packs smoked per day: 1 Years cigarettes smoked: 34 Alcohol intake: never Substance/Drug Use: current Substance/Drug use frequency: daily Physical Exam 2 Const: COMMON NORMALS: no acute distress, average body habitus, patient oriented x3, no limitations, healthy appearing, alert and well nourished G ENERAL APPEARANCE: cooperative HENMT: COMMON NORMALS: normocephalic, atraumatic, hearing grossly normal bilaterally, external ears normal, EAC's normal, Normal external nose present, Normal nasal mucous membranes and turbinates present, moist oral mucous membranes and oropharynx normal HEAD & SCALP: normal to inspection, normocephalic and atraumatic FACE & SINUS: normal facial exam and sinuses nontender NOSE: Normal external nose present, Normal nasal mucous membranes and turbinates present and Nasal discharge present EXTERNAL EAR: Yes external ears normal EXTERNAL AUDITORY CANAL: EAC's normal TYMPANIC MEMBRANE: TM abnormal TM laterality: bilateral dull, wth effusion and with fluid behind the TM THROAT: posterior oropharynx normal, tonsils normal and uvula midline Eye: COMMON NORMALS: Equal, round and reactive pupils present, EOMs intact bilaterally and conjunctivae normal CONJUNCTIVA: Yes conjunctivae normal P UPIL: Yes Equal, round and reactive pupils present Neck/C-Spine: COMMON NORMALS: no lymphadenopathy Resp: COMMON NORMALS: normal respiratory effort and clear to auscultation bilaterally AUSCULTATION: clear to auscultation bilaterally Cardio: COMMON NORMALS: regular rate and regular rhythm RATE: regular rate RHYTHM: regular rhythm Neuro: COMMON NORMALS: patient oriented x3 SENSORIUM/ORIENTATION: Yes alert Skin: COMMON NORMALS: no rashes or lesions noted GENERAL SKIN EXAM: no rashes or lesions noted Course 2 Vital Signs: Vital signs: Vital Signs Temperature 98.4 F 08/08/24 14:02 Pulse Rate 65 08/08/24 16:00 Respiratory Rate 17 08/08/24 14:02 Blood Pressure 143/92 08/08/24 16:00 Pulse Oximetry 97 08/08/24 16:00 Oxygen Delivery Me thod Room Air 08/08/24 16:00 [facility] - COVID Medical Decision Making Patient here for COVID-like symptoms. She does test positive for COVID via home antigen testing. She arrives in no acute distress with stable vital signs. Blood work is unremarkable. She declined CXR. She feels like her cough is improving and she is not complaining of any chest pain or shortness of breath. Patient was initially requesting IV fluids. She has not had any vomiting at home. Discussed IV national fluid shortage and fluid restrictions from the emergency department/hospital at this time. Ultimately oral hydration is equally as effective as IV and she was encouraged to push fluids at home. She is outside the window for any benefit from Paxlovid. Will place on Dexamethasone. Return to ED precautions given. Medical Records I reviewed the patient's medical records. Lab Data I reviewed the patient's lab results. 08/08/24 16:14 08/08/24 16:14 Laboratory Results WBC 7.50 10^3/uL (3.29-11.43) 08/08/24 16:14 RBC 4.34 10^6/uL (3.85-5.65) 08/08/24 16:14 Hgb 13.50 g/dL (11.27-16.99) 08/08/24 16:14 Hct 40.9 % (36-47) 08/08/24 16:14 MCV 94.2 fl (85-98) 08/08/24 16:14 MCH 31.1 pg (27-33) 08/08/24 16:14 MCHC 33.0 g/dL (30-55) 08/08/24 16:14 RDW 12.3 % (12.1-15.1) 08/08/24 16:14 Plt Count 239 10^3/cmm (157-399) 08/08/24 16:14 MPV 9.5 fL (7.4-10.4) 08/08/24 16:14 Neut % (Auto) 50.7 % 08/08/24 16:14 Lymph % (Auto) 40.0 % 08/08/24 16:14 Curry % (Auto) 7.1 % 08/08/24 16:14 Eos % (Auto) 1.5 % 08/08/24 16:14 Baso % (Auto) 0.4 % 08/08/24 16:14 Neut # (Auto) 3.81 10^3/uL (1.8-7.7) 08/08/24 16:14 Lymph # (Auto) 3.0 10^3/uL (0.8-4.8) 08/08/24 16:14 Curry # (Auto) 0.5 10^3/uL (0.2-0.9) 08/08/24 16:14 Eos # (Auto) 0.1 10^3/uL (0.0-0.8) 08/08/24 16:14 Baso # (Auto) 0.0 10^3/uL (0.0-0.1) 08/08/24 16:14 Nucleated RBC % (auto) 0 % 08/08/24 16:14 Nucleated RBCs # 0.0 /100WBC 08/08/24 16:14 Sodium 141 mmol/L (136-145) 08/08/24 16:14 Potassium 3.9 mmol/L (3.5-5.1) 08/08/24 16:14 Chloride 107 mmol/L (98-107) 08/08/24 16:14 Carbon Dioxide 23 mmol/L (22-29) 08/08/24 16:14 Anion Gap 14.9 (5-19) 08/08/24 16:14 BUN 10 mg/dL (6-20) 08/08/24 16:14 Creatinine 0.6 mg/dL (0.5-0.9) 08/08/24 16:14 GFR Calculation 106.3 mL/min (90-130) 08/08/24 16:14 Glucose 87 mg/dL (65-115) 08/08/24 16:14 Calculated Osmolality 290 mOsm/kg (285-295) 08/08/24 16:14 Calcium 9.1 mg/dL (8.5-10.5) 08/08/24 16:14 Total Bilirubin 0.4 mg/dL (0.15-1.2) 08/08/24 16:14 AST 14 U/L (0-32) 08/08/24 16:14 ALT 10 U/L (0-33) 08/08/24 16:14 Alkaline Phosphatase 101 U/L (35-105) 08/08/24 16:14 Total Protein 7.7 g/dL (6.6-8.7) 08/08/24 16:14 Albumin 4.6 g/dL (3.5-5.2) 08/08/24 16:14 Globulin 3.1 g/dL (1.3-4.6) 08/08/24 16:14 2 SARS-CoV-2 RNA (RT-PCR) Not detected (NOT DETECTED) 02/11/21 1 4:08 No radiology studies performed this visit Discharge Plan Discharge Patient Disposition: Home Clinical Impression: COVID Condition: Stable Prescriptions: New dexamethasone 6 mg tablet 6 mg PO DAILY Qty: 6 0RF No Action aspirin [Adult Low Dose Aspirin] 81 mg tablet,delayed release (DR/EC) 81 mg PO DAILY topiramate 50 mg tablet 50 mg PO BID Qty: 180 3RF buspirone 10 mg tablet 10 mg PO BID Qty: 60 0RF Rx Instructions: Take one tablet morning and evening lamotrigine [Lamictal] 200 mg tablet 200 mg PO .q hs Qty: 30 0RF Rx Instructions: Take one tablet daily at bedtime quetiapine 300 mg tablet 300 mg PO BEDTIME Qty: 30 0RF Rx Instructions: Take one tablet daily at bedtime levothyroxine 25 mcg tablet 25 mcg PO QAM atorvastatin 40 mg tablet 40 mg PO QPM lisinopril 5 mg tablet 5 mg PO DAILY Rx Instructions: TAKE 1 TABLET BY MOUTH EVERY DAY Discharge Orders: Discharge ED (Routine); Ordered 08/08/24 Ordered By: Nayeli Plata Referrals: Yesenia Dudley DO [Primary Care Provider] - Patient Instructions: COVID-19 (Coronavirus Disease 2019) (ED) Coding Level of Care Code ED [facility] for Marcela Russell
[2024-08-08 15:24] VITALS: O2SAT 97
[2024-08-08 15:37] VITALS: BP 128/83; PULSE 69; O2SAT 98
[2024-08-08 16:00] VITALS: BP 143/92; PULSE 65; O2SAT 97
[2024-08-08 16:23] LABS: Basophils % 0.4 %; Eosinophils # 0.1 10^3/uL (0.0-0.8); Eosinophils % 1.5 %; Hematocrit 40.9 % (36-47); Mean Corpuscular Hemoglobin 31.1 pg (27-33); Mean Corpuscular Volume 94.2 fl (85-98); Mean Platelet Volume 9.5 fL (7.4-10.4); Monocytes # 0.5 10^3/uL (0.2-0.9); Monocytes % 7.1 %; Neutrophils # 3.81 10^3/uL (1.8-7.7); Neutrophils % 50.7 %; Nucleated Red Blood Cells % 0 %; Platelet Count 239 10^3/cmm (157-399); Red Blood Count 4.34 10^6/uL (3.85-5.65); Red Cell Distribution Width 12.3 % (12.1-15.1)
[2024-08-08 16:40] LABS: Alanine Aminotransferase 10 U/L (0-33); Albumin Level 4.6 g/dL (3.5-5.2); Alkaline Phosphatase 101 U/L (35-105); Anion Gap 14.9 (5-19); Aspartate Amino Transferase 14 U/L (0-32); Blood Urea Nitrogen 10 mg/dL (6-20); Calcium 9.1 mg/dL (8.5-10.5); Carbon Dioxide 23 mmol/L (22-29); Chloride 107 mmol/L (98-107); Creatinine Clr Calc Pharmacy 124.5844; Globulin 3.1 g/dL (1.3-4.6); Glomerular Filtration Rate 106.3 mL/min (90-130); Glucose 87 mg/dL (65-115); Osmolality Calculated 290 mOsm/kg (285-295); Potassium 3.9 mmol/L (3.5-5.1); Sodium 141 mmol/L (136-145); Total Bilirubin 0.4 mg/dL (0.15-1.2); Total Protein 7.7 g/dL (6.6-8.7)
== END 2024-08-08 17:08 | disposition home or self-care (01) ==
PROVIDERS: Emergency Provider Physician Assistant; PCP Family Medicine
DX: U07.1 COVID-19 (principal); Z79.82 Long term (current) use of aspirin; F17.210 Nicotine dependence, cigarettes, uncomplicated; J44.9 Chronic obstructive pulmonary disease, unspecified; I10 Essential (primary) hypertension; E78.5 Hyperlipidemia, unspecified
CPT/HCPCS: 36415; 80053; 85025; 99283

== ENCOUNTER → 2024-09-28 13:53 | Outpatient (BNVA) | payer MEDICARE, OTHER, SELFPAY | PROVIDERS: PCP Family Medicine; Visit Provider Family Medicine | DX: I10 Essential (primary) hypertension (principal); E03.9 Hypothyroidism, unspecified; E78.2 Mixed hyperlipidemia | CPT/HCPCS: 80053; 80061; 84439; 84443; 85025 ==

== ENCOUNTER → 2025-04-17 09:18 | Outpatient (BNVA) | payer MEDICARE, SELFPAY | PROVIDERS: PCP Family Medicine; Visit Provider Family Medicine | DX: E03.9 Hypothyroidism, unspecified (principal) | CPT/HCPCS: 80053; 84439; 84443 ==